=== PATIENT | female | born 1960 | race Hispanic/Latino ===

== ENCOUNTER 2018-05-31 15:46 | Emergency (ER) | payer BC, OTHER ==
[~2018-05-31] VITALS: Ht 154.9 cm; Wt 77.1 kg
[~2018-05-31 15:46] MED LIST: BENAZEPRIL-HCT1 EAC2 PO; BENAZEPRIL-HCT1 EAC3 PO; IBUPROFEN PO; LORTAB 7.5-5001 EACH PO; VOLTAREN GEL TP; [UNRECOGNIZED DRUG - REMARK]
[2018-05-31] MEDS ORDERED: ONDANSETRON HCL INJ 2 MG/ML VIAL IV STA (17:06)
[2018-05-31] MEDS ORDERED: SODIUM CHLORIDE 0.9% 1000ML 1,000 ML ONE (17:06)
[2018-05-31] MEDS ORDERED: SODIUM CHLORIDE 0.9% 1000ML 1,000 ML IV STA (17:06)
[2018-05-31 17:42] LABS: ALANINE AMINOTRANSFERASE 33 IU/L (0-55); ALBUMIN 3.9 g/dL (3.5-5.0); ALBUMIN/GLOBULIN RATIO 1.1 (0.8-2.0); ALKALINE PHOSPHATASE 63 IU/L (40-150); AMYLASE 33 U/L (25-125); ANION GAP 13.9 mmol/L (8-16); BLOOD UREA NITROGEN 17 mg/dL (7-26); BUN/CREATININE RATIO 20 (6-25); CALCIUM 9.5 mg/dL (8.4-10.2); CARBON DIOXIDE 30 mmol/L (22-29); CHLORIDE 97 mmol/L (98-107); CREATININE, SERUM 0.86 mg/dL (0.57-1.11); EST GLOMERULAR FILTRATION RATE > 60 ML/MIN (60-); GLUCOSE 100 mg/dL (74-118); LIPASE 21 U/L (8-78); MAGNESIUM 2.2 MG/DL (1.3-2.1); SODIUM 138 mmol/L (136-145)
[2018-05-31 17:45] LABS: BASOPHILS # (AUTO) 0.1 (0.0-0.1); BASOPHILS % 0.5 % (0.0-1.0); EOSINOPHILS # (AUTO) 0.4 (0.0-0.4); HEMATOCRIT 41.6 % (34.2-44.1); HEMOGLOBIN 15.1 g/dL (12.0-16.0); LYMPHOCYTES % 21.1 % (18.0-39.1); MEAN CORPUSCULAR HGB CONC 36.3 g/dL (31-35); MEAN CORPUSCULAR VOLUME 88.1 fL (81-99); MONOCYTES # (AUTO) 1.1 (0.2-0.8); NEUTROPHILS # (AUTO) 9.5 (2.1-6.9); PLATELET COUNT 160 x10e3/uL (140-360); RED BLOOD COUNT 4.72 x10e6/uL (3.6-5.1); RED CELL DISTRIBUTION WIDTH 12.2 % (11.7-14.4)
[2018-05-31 17:46] LABS: POTASSIUM 2.9 mmol/L (3.5-5.1)
[2018-05-31] MEDS: POTASSIUM CHLORIDE 10MEQ/100ML 100 ML IV ONE ×2 (18:00→18:19)
[2018-05-31] MEDS ORDERED: POTASSIUM CHLORIDE 20 MEQ TAB CR PO ONE (18:00)
[2018-05-31 19:11] LABS: BILIRUBIN,URINE 1+ (NEGATIVE); CLARITY,URINE CLEAR (CLEAR); COLOR,URINE YELLOW (YELLOW); KETONES,URINE 1+ (NEGATIVE); LEUKOCYTE ESTERASE ,URINE 1+ (NEGATIVE); NITRITE,URINE NEGATIVE (NEGATIVE); PROTEIN,URINE DIPSTICK NEGATIVE (NEGATIVE); URINE UROBILINOGEN 0.2 mg/dL (0.2 - 1)
[2018-05-31 19:37] LABS: BACTERIA,URINE FEW /HPF; WBC,URINE (MAN) 21-50 /HPF (0-5)
[2018-05-31 19:38] LABS: EPITHELIAL CELLS,URINE FEW /LPF; TRANSITIONAL EPI CELLS,URINE FEW
== END 2018-05-31 20:11 | disposition home or self-care (01) ==
LOC: ER 15:46
DX: R10.84 Generalized abdominal pain (principal); R11.2 Nausea with vomiting, unspecified; R19.7 Diarrhea, unspecified; N30.91 Cystitis, unspecified with hematuria; I10 Essential (primary) hypertension; Z87.891 Personal history of nicotine dependence
CPT/HCPCS: 36415; 80053; 81001; 82150; 83690; 83735; 85025; 99284; J2405; J3480; J7030